=== PATIENT | male | born 1980 | race Caucasian/White ===

== ENCOUNTER → 2021-03-06 | Outpatient (CLI) | payer OTHER ==
[~2021-03-06] MED LIST: CELEBREX50 MG PO; CIALIS5 MG PO; NORCO 325 MG-51 TAB PO; PRIL40 PO
== END ==
LOC: COL.RAD 07:45
DX: K21.9 Gastro-esophageal reflux disease without esophagitis (principal); K44.9 Diaphragmatic hernia without obstruction or gangrene

== ENCOUNTER → 2021-03-08 | Outpatient (CLI) | payer OTHER | LOC: MHCPAIN 10:25 | DX: M53.3 Sacrococcygeal disorders, not elsewhere classified (principal); M54.5 Low back pain; G89.29 Other chronic pain | CPT/HCPCS: G0463 ==

== ENCOUNTER 2021-08-23 05:25 | Day surgery (SDC) | payer OTHER ==
[2021-08-23] VITALS (9 sets, daily range): BP systolic 104–131; BP diastolic 62–95; PULSE 65–85; TEMP 97.7–98.7
[~2021-08-23] VITALS: Ht 162.6 cm; Wt 85.4 kg
[2021-08-23] MEDS ORDERED: PRIL40 PO (05:55)
[2021-08-23] MEDS ORDERED: CIALIS5 MG PO (05:55)
[2021-08-23] MEDS ORDERED: CELEBREX50 MG PO (05:56)
--- NOTE | 2021-08-23 09:50 | NUR ---
Pt arrived to medical floor from PACU. VSS, pt denies pain at this time. Will continue to monitor.
--- NOTE | 2021-08-23 10:30 | NUR ---
Provider notified of limited orders. Provider stated all orders were in. This RN contacted Surgical Nurses for guidance. Pt having some swallowing pain, and states he cannot take tylenol because he does not feel it would "go down". No other concerns at this time.
--- NOTE | 2021-08-23 11:30 | NUR ---
Pt complaint of extreme pain, but will not take any oral medications at this time. Dr. Diaz notified, Doctor ordered IV pain management at this time.
--- NOTE | 2021-08-23 15:00 | NUR ---
Pt encouraged to ambulate; pt got up and walked around the nurses station several times. No concerns at this time.
--- NOTE | 2021-08-23 17:30 | NUR ---
Pt ate some broth, yogurt and apple sauce, state that he did very well with it. Having some pain, but stated that it is manageable. no other concerns.
--- NOTE | 2021-08-23 19:00 | NUR ---
Pt report given to KEVIN Thurston.
[2021-08-24 00:09] VITALS: BP 108/72; PULSE 85; TEMP 97.9
[2021-08-24 04:27] VITALS: BP 101/69; PULSE 78; TEMP 97.9
--- NOTE | 2021-08-24 05:38 | NUR ---
PT HAD UNEVENTFUL NIGHT, 6 LAP SITES COVERED WITH BANDAIDS C/D/I. PT DENIES PAIN AT THIS TIME.PT ABLE TO SWALLOW MEDICATIONS WHOLE. MEDICATIONS ADMINISTERED ORDERED. ALL NEEDS MET. CALL LIGHT WITHIN REACH.
[2021-08-24 08:00] VITALS: BP 119/77; PULSE 69; TEMP 98.5
--- NOTE | 2021-08-24 08:09 | NUR ---
REPORT RECEIVED FROM KEVIN GUNDERSON. PT ALERT/ORIENT SITTING UP IN BED. PT COMPLAINS OF CHEST/STERNUM PAIN RATED 5/10. TYLENOL ADMINISTERED. PT HAS NO OTHER NEEDS/REQUESTS AT THIS TIME. CALL [facility] IN REACH
--- NOTE | 2021-08-24 10:18 | NUR ---
First visit from the apprentice painter hand. No needs right now.
[2021-08-24 11:46] VITALS: BP 115/73; PULSE 70; TEMP 98.2
[2021-08-24 16:06] VITALS: BP 120/81; PULSE 61; TEMP 97.9
--- NOTE | 2021-08-24 16:13 | NUR ---
SW met with patient at bedside, to discuss discharge planning. Patient is ; he and his live in [facility] where patient is completely independent. is already patients designated POA. Patient is seen by different doctors at [facility] and Dr. Langston is patient's surgeon. Patient has no DME's or 02 needs. *Discharge Plan: home, no needs
[2021-08-24] MEDS ORDERED: NORCO 325 MG-51 TAB PO (16:32)
--- NOTE | 2021-08-24 18:02 | NUR ---
REVIEWED DISCHARGE INSTRUCTIONS WITH PATIENT. QUESTIONS INVITED AND ANSWERED. IV REMOVED. WALKED PT TO CAR
== END 2021-08-24 18:00 | disposition home or self-care (01) ==
LOC: SDCO 05:25 → MEDICAL 05:25 → SDCO 07:30 → MEDICAL 10:32 → SDCO 08-24 18:00
DX: K44.9 Diaphragmatic hernia without obstruction or gangrene (principal); K21.9 Gastro-esophageal reflux disease without esophagitis; M19.90 Unspecified osteoarthritis, unspecified site; G47.30 Sleep apnea, unspecified; K22.70 Barrett's esophagus without dysplasia; Z79.899 Other long term (current) drug therapy; Z82.49 Family history of ischemic heart disease and other diseases of the circulatory system; Z83.3 Family history of diabetes mellitus; Z80.8 Family history of malignant neoplasm of other organs or systems; Z80.3 Family history of malignant neoplasm of breast
CPT/HCPCS: OP; J0690; J1100; J1170; J1885; J2405; J2704; J3010; J7120